=== PATIENT | male | born 1945 | race Caucasian/White ===

== ENCOUNTER → 2017-11-30 | Outpatient (CLI) | payer MEDICARE, BC ==
[~2017-11-30] MED LIST: ANTABUSE500 MG PO; ASPIRIN 81M81 MG/TA2 PO; CEPHALEXIN500 M1 PO; COLACE 100100 MG/CAP PO; COZAAR 50MG50 MG/TAB PO; HCTZ 25MG TAB25 MG PO; MYLICON 8080 MG/TAB. PO; NICODERM C21 MG/PATC TOP; NORCO 325 MG-51 TAB PO; PEPCID 20MG TAB20 MG PO; PYRIDIUM 100MG100 MG PO; TYLENOL 325MG325 MG PO
== END ==
LOC: COL.VAS 09:39
DX: I65.29 Occlusion and stenosis of unspecified carotid artery (principal)

== ENCOUNTER 2020-01-16 08:15 | Outpatient (RCR) | payer MEDICARE, BC | END 2020-03-21 | LOC: MKS.ESL.PT | DX: M54.5 Low back pain (principal) ==

== ENCOUNTER → 2022-02-09 | Outpatient (CLI) | payer MEDICARE, BC | LOC: COL.PUL 07:46 | DX: Z01.818 Encounter for other preprocedural examination (principal) ==

== ENCOUNTER → 2022-03-11 | Outpatient (CLI) | payer MEDICARE, BC | LOC: COL.PUL 07:54 | DX: J43.9 Emphysema, unspecified (principal); F17.210 Nicotine dependence, cigarettes, uncomplicated ==

== ENCOUNTER → 2024-01-11 | Outpatient (CLI) | payer MEDICARE, BC | LOC: COL.RAD 10:20 | DX: I77.810 Thoracic aortic ectasia (principal); J43.9 Emphysema, unspecified; F17.200 Nicotine dependence, unspecified, uncomplicated ==